=== PATIENT | female | born 1940 | race Caucasian/White ===

== ENCOUNTER 2018-07-11 12:56 | Emergency (ER) | payer MEDICARE ==
[~2018-07-11] VITALS: Ht 170.2 cm; Wt 48.0 kg
--- NOTE | 2018-07-11 13:09 | NUR ---
PATIENT AGREED TO BE EVALUATED IN [facility]ALLW[facility] 10.
[2018-07-11 13:55] LABS: BASOPHILS # (AUTO) 0.1 X10'3 (0-0.2); BASOPHILS % (AUTO) 1.1 % (0-1); EOSINOPHILS % (AUTO) 0.7 % (0-6); HEMATOCRIT 44.3 % (35.0-45.0); HEMOGLOBIN 13.7 g/dl (12.0-16.0); LYMPHOCYTES # (AUTO) 0.6 X10'3 (1.1-4.8); LYMPHOCYTES % (AUTO) 8.5 % (21-51); MEAN CORPUSCULAR HEMOGLOBIN 26.4 PG (27.0-31.0); MEAN CORPUSCULAR HGB CONC 30.9 % (33.0-36.5); MEAN CORPUSCULAR VOLUME 85.2 FL (78-98); MEAN PLATELET VOLUME 6.9 FL (7.4-10.4); MONOCYTES # (AUTO) 0.3 X10'3 (0-0.9); MONOCYTES % (AUTO) 5.2 % (2-12); NEUTROPHILS # (AUTO) 5.6 X10'3 (1.8-7.7); NEUTROPHILS % (AUTO) 84.5 % (42-75); PLATELET COUNT 322 X10'3 (140-440); RED BLOOD COUNT 5.19 X10'6 (4.20-5.60); WHITE BLOOD COUNT 6.6 X10'3 (4.5-11.0)
[2018-07-11 14:02] LABS: ALANINE AMINOTRANSFERASE 26 U/L (12-78); ALBUMIN 3.1 G/DL (3.4-5.0); ALBUMIN/GLOBULIN RATIO 0.7 (1.1-1.5); ALKALINE PHOSPHATASE 114 IU/L (46-116); ANION GAP 8 (8-16); ASPARTATE AMINO TRANSFERASE 14 U/L (10-37); BILIRUBIN,TOTAL 0.4 MG/DL (0.1-1.0); BLOOD UREA NITROGEN 9 MG/DL (7-18); BUN/CREATININE RATIO 12.7 (6.6-38.0); CALCIUM 9.6 MG/DL (8.5-10.1); CHLORIDE 97 MMOL/L (99-107); CREATININE 0.71 MG/DL (0.40-0.90); GLUCOSE 93 MG/DL (70-104); POTASSIUM 4.2 MMOL/L (3.5-5.1); SODIUM 133 MMOL/L (135-145); TOTAL CARBON DIOXIDE 28.1 MMOL/L (24-32); TOTAL PROTEIN 7.6 G/DL (6.4-8.2); eGFR 80 ML/MIN
[2018-07-11 14:21] LABS: CLARITY,URINE CLEAR (Clear); COLOR,URINE YELLOW (Yellow); GLUCOSE, URINE NEGATIVE (Neg); KETONES,URINE NEGATIVE (Neg); LEUKOCYTE ESTERASE ,URINE NEGATIVE (Neg); NITRITES, URINE NEGATIVE (Neg); OCCULT BLOOD,URINE NEGATIVE (Neg); PROTEIN,URINE NEGATIVE (Neg); UROBILINOGEN,URINE 0.2 E.U/dL (0.2-1.0)
[2018-07-11 14:22] LABS: UA COLLECTION TYPE CLN CATCH MIDSTREAM; URINE HCG NEGATIVE (NEG)
[2018-07-11 14:31] LABS: ANISOCYTOSIS 2+; HYPOCHROMASIA 1+; PLATELET ESTIMATE NORMAL; TOTAL CELLS COUNTED 100
[2018-07-11 14:32] LABS: POIKILOCYTOSIS FEW
[2018-07-11 14:49] LABS: AMYLASE 56 U/L (25-115); ETHANOL < 0.010 GM/DL (0.0-0.010); LIPASE 227 U/L (73-393); MAGNESIUM 2.1 MG/DL (1.5-2.4)
--- NOTE | 2018-07-11 15:24 | NUR ---
PATIENT TO CT.
[2018-07-11] MEDS ORDERED: iohexol 300mg/ml 100ml inj. ONE (15:29)
[2018-07-11 16:26] VITALS: BP 155/60
[2018-07-11] MEDS ORDERED: CefTRIAXone 2gm/D5W 50ml 50 ML IV ONE (16:35)
[2018-07-11] MEDS ORDERED: normal saline 1000ML IV soln IVB ONE (16:35)
[2018-07-11] MEDS ORDERED: DOXY100C2 PO (16:36)
[2018-07-11] MEDS ORDERED: LACT1CAP65 PO (16:44)
== END 2018-07-11 17:51 | disposition home or self-care (01) ==
LOC: ER 12:57
DX: J18.1 Lobar pneumonia, unspecified organism (principal); M19.90 Unspecified osteoarthritis, unspecified site; Z87.891 Personal history of nicotine dependence; Z90.89 Acquired absence of other organs; Z88.5 Allergy status to narcotic agent; Z88.8 Allergy status to other drugs, medicaments and biological substances; Z79.899 Other long term (current) drug therapy
CPT/HCPCS: 36415; 71045; 74177; 80053; 80320; 81003; 81025; 82150; 83690; 83735; 84443; 85025; 85610; 96365; 99284; J0696; J7030; Q9967

== ENCOUNTER 2018-07-22 19:29 | Emergency (ER) | payer MEDICARE ==
[~2018-07-22] VITALS: Ht 170.2 cm; Wt 45.0 kg
[~2018-07-22 19:29] MED LIST: DOXY100C2 PO; LACT1CAP65 PO
[2018-07-22 21:13] LABS: BASOPHILS # (AUTO) 0.1 X10'3 (0-0.2); BASOPHILS % (AUTO) 1.2 % (0-1); EOSINOPHILS # (AUTO) 0.1 X10'3 (0-0.9); HEMATOCRIT 44.1 % (35.0-45.0); HEMOGLOBIN 14.2 g/dl (12.0-16.0); LYMPHOCYTES # (AUTO) 0.7 X10'3 (1.1-4.8); LYMPHOCYTES % (AUTO) 10.4 % (21-51); MEAN CORPUSCULAR HEMOGLOBIN 27.2 PG (27.0-31.0); MEAN CORPUSCULAR HGB CONC 32.2 % (33.0-36.5); MEAN CORPUSCULAR VOLUME 84.4 FL (78-98); MEAN PLATELET VOLUME 7.9 FL (7.4-10.4); MONOCYTES # (AUTO) 0.3 X10'3 (0-0.9); MONOCYTES % (AUTO) 4.7 % (2-12); NEUTROPHILS # (AUTO) 5.4 X10'3 (1.8-7.7); NEUTROPHILS % (AUTO) 82.7 % (42-75); PLATELET COUNT 231 X10'3 (140-440); RED BLOOD COUNT 5.22 X10'6 (4.20-5.60); RED CELL DISTRIBUTION WIDTH 19.6 % (11.5-14.5); WHITE BLOOD COUNT 6.5 X10'3 (4.5-11.0)
[2018-07-22 21:23] LABS: ALANINE AMINOTRANSFERASE 21 U/L (12-78); ALBUMIN 3.3 G/DL (3.4-5.0); ALBUMIN/GLOBULIN RATIO 0.7 (1.1-1.5); ALKALINE PHOSPHATASE 108 IU/L (46-116); ANION GAP 10 (8-16); ASPARTATE AMINO TRANSFERASE 7 U/L (10-37); BILIRUBIN,TOTAL 0.5 MG/DL (0.1-1.0); BLOOD UREA NITROGEN 13 MG/DL (7-18); BUN/CREATININE RATIO 17.6 (6.6-38.0); CHLORIDE 97 MMOL/L (99-107); CREATININE 0.74 MG/DL (0.40-0.90); GLUCOSE 144 MG/DL (70-104); POTASSIUM 4.1 MMOL/L (3.5-5.1); PROTHROMBIN TIME 9.8 SECONDS (9.0-12.0); SODIUM 135 MMOL/L (135-145); TOTAL CARBON DIOXIDE 27.7 MMOL/L (24-32); TOTAL PROTEIN 7.8 G/DL (6.4-8.2); eGFR 76 ML/MIN
[2018-07-22 21:31] LABS: LIPASE 154 U/L (73-393); MAGNESIUM 1.8 MG/DL (1.5-2.4); TROPONIN I < 0.04 NG/ML (0.0-0.05)
[2018-07-22 22:44] VITALS: BP 186/68
== END 2018-07-22 22:45 | disposition home or self-care (01) ==
LOC: ER 19:30
DX: K80.50 Calculus of bile duct without cholangitis or cholecystitis without obstruction (principal); R10.11 Right upper quadrant pain; M19.90 Unspecified osteoarthritis, unspecified site; Z87.891 Personal history of nicotine dependence; Z91.041 Radiographic dye allergy status; Z79.899 Other long term (current) drug therapy; Z88.5 Allergy status to narcotic agent
CPT/HCPCS: 36415; 71045; 80053; 83690; 83735; 83880; 84145; 84484; 85025; 85610; 99284

== ENCOUNTER 2020-04-06 20:55 | Emergency (ER) | payer MEDICARE ==
[~2020-04-06] VITALS: Ht 175.3 cm; Wt 56.3 kg
[~2020-04-06 20:55] MED LIST changes: +ALBU18HF2 INH; -DOXY100C2 PO; -LACT1CAP65 PO; +LEFL10TA16 PO; +LEVO125T PO
[2020-04-06 20:57] VITALS: BP 172/75
== END 2020-04-06 22:40 | disposition home or self-care (01) ==
LOC: ER 20:57
DX: R21 Rash and other nonspecific skin eruption (principal); R23.4 Changes in skin texture; M19.90 Unspecified osteoarthritis, unspecified site; Z98.890 Other specified postprocedural states; Z88.5 Allergy status to narcotic agent; Z88.8 Allergy status to other drugs, medicaments and biological substances; Z79.899 Other long term (current) drug therapy
CPT/HCPCS: 99284

== ENCOUNTER 2020-08-04 11:29 | Emergency (ER) | payer MEDICARE ==
[~2020-08-04] VITALS: Ht 170.2 cm; Wt 44.0 kg
[~2020-08-04 11:29] MED LIST changes: -ALBU18HF2 INH; +ARA20T PO; +FURO20TA4 PO; +METO-395 PO; +PANT20TA18 PO; +RIVA20TA PO
[2020-08-04] MEDS ORDERED: OFLO5DRO5 RIGHT EAR (13:21)
[2020-08-04 13:32] VITALS: BP 158/78
== END 2020-08-04 13:35 | disposition home or self-care (01) ==
LOC: ER 11:30
DX: H60.92 Unspecified otitis externa, left ear (principal); M19.90 Unspecified osteoarthritis, unspecified site; Z98.890 Other specified postprocedural states; Z88.5 Allergy status to narcotic agent; Z88.8 Allergy status to other drugs, medicaments and biological substances; Z79.899 Other long term (current) drug therapy; Z79.2 Long term (current) use of antibiotics
CPT/HCPCS: 69210; 99284

== ENCOUNTER 2020-08-09 10:13 | Emergency (ER) | payer MEDICARE ==
[~2020-08-09] VITALS: Ht 170.2 cm; Wt 44.0 kg
[~2020-08-09 10:13] MED LIST changes: +OFLO5DRO5 RIGHT EAR
[2020-08-09 12:17] LABS: BASOPHILS # (AUTO) 0.1 X10'3 (0-0.2); BASOPHILS % (AUTO) 1.2 % (0-1); EOSINOPHILS # (AUTO) 0.1 X10'3 (0-0.9); EOSINOPHILS % (AUTO) 1.2 % (0-6); HEMATOCRIT 35.1 % (35.0-45.0); HEMOGLOBIN 10.8 g/dl (12.0-16.0); LYMPHOCYTES # (AUTO) 0.7 X10'3 (1.1-4.8); LYMPHOCYTES % (AUTO) 10.4 % (21-51); MEAN CORPUSCULAR HGB CONC 30.7 g/dL (33.0-36.5); MEAN CORPUSCULAR VOLUME 81.5 FL (78-98); MEAN PLATELET VOLUME 6.9 FL (7.4-10.4); MONOCYTES # (AUTO) 0.8 X10'3 (0-0.9); MONOCYTES % (AUTO) 11.8 % (2-12); NEUTROPHILS # (AUTO) 4.9 X10'3 (1.8-7.7); NEUTROPHILS % (AUTO) 75.4 % (42-75); PLATELET COUNT 181 X10'3 (140-440); RED CELL DISTRIBUTION WIDTH 26.8 % (11.5-14.5); WHITE BLOOD COUNT 6.5 X10'3 (4.5-11.0)
[2020-08-09 12:32] LABS: ALANINE AMINOTRANSFERASE 18 U/L (12-78); ALBUMIN 2.8 G/DL (3.4-5.0); ALBUMIN/GLOBULIN RATIO 0.7 (1.1-1.5); ALKALINE PHOSPHATASE 104 IU/L (46-116); ANION GAP 7 (8-16); ASPARTATE AMINO TRANSFERASE 15 U/L (10-37); BILIRUBIN,TOTAL 0.4 MG/DL (0.1-1.0); BLOOD UREA NITROGEN 22 MG/DL (7-18); BUN/CREATININE RATIO 26.2 (6.6-38.0); CALCIUM 9.4 MG/DL (8.5-10.1); CHLORIDE 106 MMOL/L (99-107); CREATININE 0.84 MG/DL (0.40-0.90); GLUCOSE 97 MG/DL (70-104); POTASSIUM 4.9 MMOL/L (3.5-5.1); SODIUM 140 MMOL/L (135-145); TOTAL CARBON DIOXIDE 26.9 MMOL/L (24-32); TOTAL PROTEIN 6.6 G/DL (6.4-8.2); eGFR 65 ML/MIN
[2020-08-09 12:35] LABS: CLARITY,URINE CLOUDY (Clear); COLOR,URINE YELLOW (Yellow); GLUCOSE, URINE NEGATIVE (Neg); KETONES,URINE NEGATIVE (Neg); LEUKOCYTE ESTERASE ,URINE SMALL (Neg); NITRITES, URINE POSITIVE (Neg); OCCULT BLOOD,URINE NEGATIVE (Neg); PH,URINE 7.5 (4.8-8.0); PROTEIN,URINE 100 mg/dl (Neg); UROBILINOGEN,URINE 0.2 E.U/dL (0.2-1.0)
[2020-08-09 12:46] LABS: UA COLLECTION TYPE STRAIGHT CATH
[2020-08-09 12:49] LABS: WBC CLUMPS,URINE FEW /HPF (NEGATIVE)
[2020-08-09 12:50] LABS: BACTERIA,URINE 4+ /HPF (Neg); CELLULAR CAST 0-4 /LPF (NEGATIVE); COARSE GRANULAR CAST 0-3 /LPF (NEGATIVE); HYALINE CASTS 0-3 /LPF (NEGATIVE); RENAL CELLS, URINE FEW /HPF
[2020-08-09 12:54] LABS: SQUAMOUS EPITHELIAL CELL,UR MANY /LPF (FEW)
[2020-08-09 12:56] LABS: RBC,URINE 0-2 /HPF (0-2)
[2020-08-09 12:58] LABS: WBC,URINE 20-30 /HPF (0-4)
[2020-08-09] MEDS ORDERED: NITR100C6 PO (13:48)
[2020-08-09 14:51] VITALS: BP 168/92
[2020-08-09 14:51] LABS: TOTAL CELLS COUNTED 200
[2020-08-09 14:52] LABS: ANISOCYTOSIS 3+; HYPOCHROMASIA 1+; PLATELET ESTIMATE NORMAL; REACTIVE LYMPHOCYTES % 0 % (0-0)
[2020-08-09 14:54] LABS: ELLIPTOCYTES 1+; SCHISTOCYTES FEW
[2020-08-09 14:55] LABS: TEAR DROP CELLS FEW
== END 2020-08-09 14:53 | disposition home or self-care (01) ==
LOC: ER 10:14
DX: R06.82 Tachypnea, not elsewhere classified (principal); F41.9 Anxiety disorder, unspecified; N39.0 Urinary tract infection, site not specified; M19.90 Unspecified osteoarthritis, unspecified site; Z98.890 Other specified postprocedural states; Z88.5 Allergy status to narcotic agent; Z88.8 Allergy status to other drugs, medicaments and biological substances; Z79.2 Long term (current) use of antibiotics; Z79.899 Other long term (current) drug therapy
CPT/HCPCS: 36415; 71045; 80053; 81001; 84484; 85007; 85025; 87077; 87088; 87186; 93005; 99285

== ENCOUNTER 2021-09-16 10:26 | Emergency (ER) | payer MEDICARE ==
[~2021-09-16] VITALS: Ht 165.1 cm; Wt 50.0 kg
[~2021-09-16 10:26] MED LIST changes: -ARA20T PO; +DOCU-21 PO; -LEFL10TA16 PO; +LEFL10TA20 PO; +NITR100C6 PO; +[UNRECOGNIZED DRUG - CODE] PO
[2021-09-16 11:16] LABS: BASOPHILS % (AUTO) 0.5 % (0-1); EOSINOPHILS % (AUTO) 0.5 % (0-6); HEMATOCRIT 38.1 % (35.0-45.0); HEMOGLOBIN 12.5 g/dl (12.0-16.0); LYMPHOCYTES # (AUTO) 0.5 X10'3 (1.1-4.8); LYMPHOCYTES % (AUTO) 6.2 % (21-51); MEAN CORPUSCULAR HGB CONC 32.7 g/dL (33.0-36.5); MEAN CORPUSCULAR VOLUME 94.8 FL (78-98); MEAN PLATELET VOLUME 7.9 FL (7.4-10.4); MONOCYTES # (AUTO) 0.9 X10'3 (0-0.9); MONOCYTES % (AUTO) 11.7 % (2-12); NEUTROPHILS # (AUTO) 6.5 X10'3 (1.8-7.7); NEUTROPHILS % (AUTO) 81.1 % (42-75); PLATELET COUNT 229 X10'3 (140-440); RED BLOOD COUNT 4.01 X10'6 (4.20-5.60); RED CELL DISTRIBUTION WIDTH 18.1 % (11.5-14.5)
[2021-09-16 11:35] LABS: ALANINE AMINOTRANSFERASE 13 U/L (12-78); ALBUMIN 3.1 G/DL (3.4-5.0); ALBUMIN/GLOBULIN RATIO 0.7 (1.1-1.5); ALKALINE PHOSPHATASE 83 IU/L (46-116); ANION GAP 13 (8-16); ASPARTATE AMINO TRANSFERASE 9 U/L (10-37); BILIRUBIN,TOTAL 0.8 MG/DL (0.1-1.0); BLOOD UREA NITROGEN 17 MG/DL (7-18); BUN/CREATININE RATIO 18.1 (6.6-38.0); CHLORIDE 101 MMOL/L (99-107); CREATININE 0.94 MG/DL (0.40-0.90); GLUCOSE 112 MG/DL (70-104); POTASSIUM 3.7 MMOL/L (3.5-5.1); SODIUM 142 MMOL/L (135-145); TOTAL CARBON DIOXIDE 28.5 MMOL/L (24-32); TOTAL PROTEIN 7.3 G/DL (6.4-8.2); eGFR 57 ML/MIN
[2021-09-16 11:44] LABS: MAGNESIUM 2.2 MG/DL (1.5-2.4); PHOSPHORUS 2.9 MG/DL (2.3-4.5)
[2021-09-16 12:50] LABS: CLARITY,URINE CLEAR (Clear); COLOR,URINE YELLOW (Yellow); GLUCOSE, URINE NEGATIVE (Neg); KETONES,URINE NEGATIVE (Neg); LEUKOCYTE ESTERASE ,URINE NEGATIVE (Neg); NITRITES, URINE NEGATIVE (Neg); OCCULT BLOOD,URINE NEGATIVE (Neg); PH,URINE 5.5 (4.8-8.0); PROTEIN,URINE NEGATIVE (Neg); UROBILINOGEN,URINE 0.2 E.U/dL (0.2-1.0)
[2021-09-16 12:53] LABS: UA COLLECTION TYPE STRAIGHT CATH
--- NOTE | 2021-09-16 13:04 | NUR ---
Pt resting comfortably in bed, at bedside.
[2021-09-16] MEDS ORDERED: AZIT250T27 PO (13:28)
[2021-09-16 14:28] VITALS: BP 176/67
== END 2021-09-16 14:31 | disposition home or self-care (01) ==
LOC: ER 10:26
DX: J18.9 Pneumonia, unspecified organism (principal); Z20.822 Contact with and (suspected) exposure to COVID-19; I11.0 Hypertensive heart disease with heart failure; I50.9 Heart failure, unspecified; F03.90 Unspecified dementia, unspecified severity, without behavioral disturbance, psychotic disturbance, mood disturbance, and anxiety; Z87.19 Personal history of other diseases of the digestive system; M19.90 Unspecified osteoarthritis, unspecified site; Z88.8 Allergy status to other drugs, medicaments and biological substances; Z79.2 Long term (current) use of antibiotics; Z79.899 Other long term (current) drug therapy
CPT/HCPCS: 36415; 71045; 80053; 81003; 83605; 83735; 83880; 84100; 84145; 84484; 85025; 87040; 87635; 93005; 99285; C9803

== ENCOUNTER 2021-11-04 07:26 | Inpatient (IN) | payer MEDICARE ==
[~2021-11-04] VITALS: Ht 162.6 cm; Wt 47.7 kg
[2021-11-04] MEDS ORDERED: LIDOcaine 2% 10ml TOPICAL JELLY (Urojet) TP ONE (07:45)
[2021-11-04] MEDS ORDERED: ipratropium/albuterol 3ml nebule NEB ONE (07:50)
[2021-11-04 07:53] LABS: ABG BASE EXCESS 1.5 mmol/L (-2.0-2.0); ABG HCO3 25.5 mmol/L (22.0-26.0); ABG OXYGEN SATURATION 93.3 % (94-97); ABG PCO2 (T) 38.3 mmHg (32.0-45.0); ABG PO2 (T) 66.7 mmHg (75.0-100.0); ALLEN'S TEST POSITIVE; FCOHb 0.6 % (0.0-3.9); FLOW 15 L/min; FO2Hb 92.7 % (94-97); TOTAL HEMOGLOBIN 13.7 G/dl (12.0-16.0)
--- NOTE | 2021-11-04 08:00 | NUR ---
Per RT, pt will be placed on BiPAP/C-PAP
[2021-11-04] MEDS ORDERED: azithromycin/NS 500mg/250ml 250 ML IV ONE (08:15)
[2021-11-04] MEDS ORDERED: cefTRIAXone 1g/NS 100ml IVPB 100 ML IV ONE (08:15)
[2021-11-04 08:26] LABS: BASOPHILS # (AUTO) 0.1 X10'3 (0-0.2); BASOPHILS % (AUTO) 1.1 % (0-1); EOSINOPHILS # (AUTO) 0.1 X10'3 (0-0.9); EOSINOPHILS % (AUTO) 0.8 % (0-6); HEMATOCRIT 41.7 % (35.0-45.0); HEMOGLOBIN 13.7 g/dl (12.0-16.0); LYMPHOCYTES # (AUTO) 0.5 X10'3 (1.1-4.8); LYMPHOCYTES % (AUTO) 4.7 % (21-51); MEAN CORPUSCULAR HEMOGLOBIN 30.7 PG (27.0-31.0); MEAN CORPUSCULAR HGB CONC 32.7 g/dL (33.0-36.5); MEAN CORPUSCULAR VOLUME 93.7 FL (78-98); MEAN PLATELET VOLUME 8.5 FL (7.4-10.4); MONOCYTES # (AUTO) 0.6 X10'3 (0-0.9); MONOCYTES % (AUTO) 6.1 % (2-12); NEUTROPHILS # (AUTO) 8.9 X10'3 (1.8-7.7); NEUTROPHILS % (AUTO) 87.3 % (42-75); PLATELET COUNT 268 X10'3 (140-440); RED BLOOD COUNT 4.45 X10'6 (4.20-5.60); RED CELL DISTRIBUTION WIDTH 17.8 % (11.5-14.5); WHITE BLOOD COUNT 10.2 X10'3 (4.5-11.0)
[2021-11-04 08:53] LABS: ALANINE AMINOTRANSFERASE 12 U/L (12-78); ALBUMIN 3.2 G/DL (3.4-5.0); ALBUMIN/GLOBULIN RATIO 0.7 (1.1-1.5); ALKALINE PHOSPHATASE 93 IU/L (46-116); ANION GAP 12 (8-16); ASPARTATE AMINO TRANSFERASE 11 U/L (10-37); BILIRUBIN,TOTAL 0.6 MG/DL (0.1-1.0); BLOOD UREA NITROGEN 11 MG/DL (7-18); BUN/CREATININE RATIO 11.5 (6.6-38.0); CALCIUM 9.6 MG/DL (8.5-10.1); CHLORIDE 99 MMOL/L (99-107); CREATININE 0.96 MG/DL (0.40-0.90); GLUCOSE 187 MG/DL (70-104); POTASSIUM 3.3 MMOL/L (3.5-5.1); SODIUM 135 MMOL/L (135-145); TOTAL CARBON DIOXIDE 24.2 MMOL/L (24-32); TOTAL PROTEIN 7.7 G/DL (6.4-8.2); eGFR 56 ML/MIN
[2021-11-04 09:34] LABS: CLARITY,URINE CLEAR (Clear); COLOR,URINE YELLOW (Yellow); GLUCOSE, URINE NEGATIVE (Neg); KETONES,URINE NEGATIVE (Neg); LEUKOCYTE ESTERASE ,URINE NEGATIVE (Neg); NITRITES, URINE NEGATIVE (Neg); OCCULT BLOOD,URINE TRACE-INTACT (Neg); PH,URINE 6.5 (4.8-8.0); PROTEIN,URINE 30 mg/dl (Neg); UROBILINOGEN,URINE 0.2 E.U/dL (0.2-1.0)
[2021-11-04 09:39] LABS: UA COLLECTION TYPE FOLEY CATH
[2021-11-04 09:40] LABS: BACTERIA,URINE NONE SEEN /HPF (Neg); MUCUS STRANDS FEW /LPF (Neg); RBC,URINE 0-2 /HPF (0-2); SQUAMOUS EPITHELIAL CELL,UR FEW /LPF (FEW); WBC,URINE NONE SEEN /HPF (0-4)
[2021-11-04] MEDS ORDERED: iohexol 350MG/ML 100ml bottle IV ONE (10:17)
--- NOTE | 2021-11-04 10:49 | NUR ---
RT called to help transport pt to CT. Pt removed from bipap and placed on non-rebreather mask at 15 lpm with spo2 of 97-99%. Per Dr. Hernadez, pt should be around spo2 of 92%. I did not assist with CT transport, however I just spoke with pt's RN, Sahra and pt was just returning from [place]. She will trial pt on a nasal cannula with spo2 goal of 92%. Will cont to monitor pt.
[2021-11-04] MEDS ORDERED: POTASSIUM BICARB 20meq eff tab 20 MEQ TABLET.EFF PO PRN ×2 (11:20)
[2021-11-04] MEDS ORDERED: potassium CL 10mEq/100ml bag 100 ML IV PRN (11:20)
[2021-11-04] MEDS ORDERED: ondansetron/PF 4mg/2ml inj IV PRN (11:20)
[2021-11-04] MEDS ORDERED: acetaminophen 325mg tablet PO PRN (11:20)
[2021-11-04] MEDS ORDERED: magnesium 2GM in 50ml NS 50 ML IV PRN (11:20)
[2021-11-04] MEDS ORDERED: magnesium Cl slow-release 64mg tablet PO PRN (11:20)
[2021-11-04] MEDS ORDERED: magnesium 4gm in 100ml NS 100 ML IV PRN (11:20)
[2021-11-04] MEDS: azithromycin/NS 500mg/250ml 250 ML IV SCH (11:35)
[2021-11-04] MEDS: cefTRIAXone 1g/NS 100ml IVPB 100 ML IV SCH (11:35)
[2021-11-04] MEDS: normal saline 1000ml 1,000 ML IV SCH (12:59)
[2021-11-04 13:02] LABS: MAGNESIUM 1.8 MG/DL (1.5-2.4); POTASSIUM 4.2 MMOL/L (3.5-5.1)
[2021-11-04] MEDS ORDERED: IBUP-2697 (16:35)
[2021-11-04] MEDS ORDERED: FURO40TA4 PO (16:35)
--- NOTE | 2021-11-04 17:28 | NUR ---
Received pt. repositioned pt. and cleaned soiled bed. VS taken. 84-91% on 6 L via salter. Graeme RT.
--- NOTE | 2021-11-04 17:32 | NUR ---
PAGER ID: [phone] MESSAGE: Jaclyn Dale [id number] Pt. BP 90/46. HR 106 Tko only fluids. Anne [id number]
[2021-11-04 17:54] VITALS: BP 100/58
[2021-11-04 18:00] VITALS: BP 91/51
--- NOTE | 2021-11-04 18:22 | NUR ---
Gave report to Ruthie TRIPATHI.
--- NOTE | 2021-11-04 18:38 | NUR ---
Patient in room U 3013. I have received report from BHUMI PARKER and had the opportunity to ask questions and assume patient care. Addendum: 11/04/21 at 1839 by Ruthie Pritchard RN Amended: Links added.
[2021-11-04] MEDS: K and/or MAG REPLACEMENT MC SCH (20:00)
[2021-11-04] MEDS: docusate sod 100mg capsule PO SCH (20:00)
--- NOTE | 2021-11-04 21:10 | NUR ---
Rt in the room with pt sats down 84% and pt changed form nc 5liters to salter o2 put to 10liters to get pt sats up and will titrate down as pt tolerates it.
[2021-11-04 22:00] VITALS: BP 118/78
--- NOTE | 2021-11-04 22:05 | NUR ---
sats up to 96% and 02 decreased to 8 liters. noted sats dropped to 94%.
--- NOTE | 2021-11-04 23:00 | NUR ---
o2 weaned down to 6 liters sats at 90% now and ended up increasing back up to 7 liters. to get back up to 92%.
[2021-11-05 02:00] VITALS: BP 110/60
--- NOTE | 2021-11-05 03:20 | NUR ---
inc of liquid stool skin care done and positioned to comfort.
--- NOTE | 2021-11-05 05:04 | NUR ---
pt desaturates quickly with repositioning and it takes time to get her sats back up. she is coughing non productively and cough now slightly stronger than earlier. sats on7l salter now between 93-94. when she drops it goes down to 77% and takes awhile to increase.
--- NOTE | 2021-11-05 06:35 | NUR ---
Problems reprioritized. Patient report given, questions answered & plan of care reviewed with BHUMI CARD. Addendum: 11/05/21 at 0635 by Ruthie Pritchard RN Amended: Links added.
[2021-11-05 06:47] LABS: BASOPHILS % (AUTO) 0.2 % (0-1); EOSINOPHILS % (AUTO) 0 % (0-6); HEMATOCRIT 41.5 % (35.0-45.0); HEMOGLOBIN 13.1 g/dl (12.0-16.0); LYMPHOCYTES # (AUTO) 0.6 X10'3 (1.1-4.8); LYMPHOCYTES % (AUTO) 4.8 % (21-51); MEAN CORPUSCULAR HEMOGLOBIN 29.9 PG (27.0-31.0); MEAN CORPUSCULAR HGB CONC 31.6 g/dL (33.0-36.5); MEAN CORPUSCULAR VOLUME 94.5 FL (78-98); MEAN PLATELET VOLUME 8.3 FL (7.4-10.4); MONOCYTES # (AUTO) 0.9 X10'3 (0-0.9); NEUTROPHILS # (AUTO) 10.2 X10'3 (1.8-7.7); PLATELET COUNT 228 X10'3 (140-440); RED BLOOD COUNT 4.39 X10'6 (4.20-5.60); RED CELL DISTRIBUTION WIDTH 18.7 % (11.5-14.5); WHITE BLOOD COUNT 11.7 X10'3 (4.5-11.0)
[2021-11-05 07:00] VITALS: BP 147/70
[2021-11-05] MEDS: docusate sod 100mg capsule PO SCH ×2 (07:04→20:00)
[2021-11-05 07:08] LABS: ALBUMIN 2.7 G/DL (3.4-5.0); ANION GAP 13 (8-16); BLOOD UREA NITROGEN 22 MG/DL (7-18); BUN/CREATININE RATIO 18.6 (6.6-38.0); CALCIUM 10.1 MG/DL (8.5-10.1); CHLORIDE 104 MMOL/L (99-107); CREATININE 1.18 MG/DL (0.40-0.90); GLUCOSE 131 MG/DL (70-104); MAGNESIUM 2.3 MG/DL (1.5-2.4); POTASSIUM 4.3 MMOL/L (3.5-5.1); SODIUM 140 MMOL/L (135-145); TOTAL CARBON DIOXIDE 23.2 MMOL/L (24-32); eGFR 44 ML/MIN
[2021-11-05] MEDS: K and/or MAG REPLACEMENT MC SCH ×2 (07:10→20:00)
[2021-11-05] MEDS: azithromycin/NS 500mg/250ml 250 ML IV SCH (07:45)
[2021-11-05] MEDS: cefTRIAXone 1g/NS 100ml IVPB 100 ML IV SCH (07:45)
--- NOTE | 2021-11-05 10:39 | NUR ---
Malnutrition consult: Pt admitted w/ acute respiratory failure and PNA w/ hx of dementia and nonverbal per EMR. Per MST pt reports 2-13lb wt loss. Wt and ht in EMR fluctuates over the years. Pt non verbal, at bedside who states he does not think pt has lost much wt recently, maybe a pound or two. Pt does appear w/ moderate wasting to facial, clavicular and deltoid regions, however the states that this has been her baseline appearance for the last few years. He states that she needs soft foods because she has not teeth, and is able to eat at home, though does not like protein drinks. No edema noted. At this time pt does not meet minimum criteria for malnutrition. Recommend BSS w/ CORPORATE LAWYER to determine most appropriate diet texture. D/w dietary to send soft to chew foods and chopped meats in the meantime. Recommend liberalizing to Regular diet. Addendum: 11/05/21 at [address] Amended: Links added.
[2021-11-05 11:00] VITALS: BP 126/65
[2021-11-05] MEDS: metoprolol succinate 25mg (24-HOUR) SR. Tablet PO SCH (13:22)
[2021-11-05] MEDS: levoTHYROXINE 125mcg tablet PO SCH (13:22)
[2021-11-05] MEDS: LEFLUNOMIDE 10 MG TABLET PO SCH (13:22)
--- NOTE | 2021-11-05 13:45 | NUR ---
Titrated the patient's oxygen amount. Started the patient at 4L stating 94%. Slowly weaned down to RA. After 7 minutes, the patient started to de-stat to 86%. Placed the patient on 2L of O2 since the patient started to eat lunch.
[2021-11-05 15:00] VITALS: BP 124/68
[2021-11-05 18:00] VITALS: BP 144/85
--- NOTE | 2021-11-05 18:23 | NUR ---
Problems reprioritized. Patient report given, questions answered & plan of care reviewed with Ruthie TRIPATHI.
--- NOTE | 2021-11-05 18:37 | NUR ---
Patient in room U 3013. I have received report from COMPA and had the opportunity to ask questions and assume patient care. Addendum: 11/05/21 at 1838 by Ruthie Pritchard RN Amended: Links added.
--- NOTE | 2021-11-05 20:40 | NUR ---
skin care, bhardwaj care done with lien change after cleaning inc of liquid stool. barrier cream mix with calzyme for skin protection to bottom. pt repositioned to comfort after this.
[2021-11-05 22:00] VITALS: BP 122/76
--- NOTE | 2021-11-06 01:00 | NUR ---
pt awoke took 02 off sats dropped to 86% and reapplied 02 raised it up to 5 liters to help bring it back up.
[2021-11-06 02:00] VITALS: BP 140/81
--- NOTE | 2021-11-06 02:10 | NUR ---
02 salter dropped back down to 2 liters. satsat 89-90% so 02 brought back up to 3 liters.
--- NOTE | 2021-11-06 03:00 | NUR ---
pt wide awake with 02 on and sats dropped back down to 87% encouraged coughing and deep breathing with her, pt coughed up some said she swallowed it. cough is weak course, sats did not go up after percussion done 02 raised back up to 6 liters.
--- NOTE | 2021-11-06 04:15 | NUR ---
pt weaned back down to 4l liters salter. at 93-94% with this but at times dips back to 91-92%.
[2021-11-06 06:00] VITALS: BP 152/64
--- NOTE | 2021-11-06 06:25 | NUR ---
Problems reprioritized. Patient report given, questions answered & plan of care reviewed with BHUMI VERDE. Addendum: 11/06/21 at 0626 by Ruthie Pritchard RN Amended: Links added.
--- NOTE | 2021-11-06 06:33 | NUR ---
Patient in room PCU 3013. I have received report from RODERICK TRIPATHI and had the opportunity to ask questions and assume patient care.
[2021-11-06 07:18] LABS: ALBUMIN 2.7 G/DL (3.4-5.0); ANION GAP 15 (8-16); BLOOD UREA NITROGEN 26 MG/DL (7-18); BUN/CREATININE RATIO 27.1 (6.6-38.0); CALCIUM 9.9 MG/DL (8.5-10.1); CHLORIDE 104 MMOL/L (99-107); CREATININE 0.96 MG/DL (0.40-0.90); GLUCOSE 90 MG/DL (70-104); MAGNESIUM 2.3 MG/DL (1.5-2.4); POTASSIUM 3.6 MMOL/L (3.5-5.1); SODIUM 140 MMOL/L (135-145); TOTAL CARBON DIOXIDE 21.3 MMOL/L (24-32); eGFR 56 ML/MIN
[2021-11-06] MEDS: cefTRIAXone 1g/NS 100ml IVPB 100 ML IV SCH (07:21)
[2021-11-06] MEDS: metoprolol succinate 25mg (24-HOUR) SR. Tablet PO SCH (07:21)
[2021-11-06] MEDS: rivaroxaban 20mg tablet PO SCH (07:21)
[2021-11-06] MEDS: LEFLUNOMIDE 10 MG TABLET PO SCH (07:21)
[2021-11-06] MEDS: pantoprazole 40mg Tablet.DR PO SCH (07:21)
[2021-11-06] MEDS: levoTHYROXINE 125mcg tablet PO SCH (07:21)
[2021-11-06] MEDS: docusate sod 100mg capsule PO SCH ×2 (07:22→19:58)
[2021-11-06 07:51] LABS: BASOPHILS % (AUTO) 0.4 % (0-1); EOSINOPHILS % (AUTO) 0.1 % (0-6); HEMATOCRIT 39.3 % (35.0-45.0); HEMOGLOBIN 12.7 g/dl (12.0-16.0); LYMPHOCYTES # (AUTO) 0.3 X10'3 (1.1-4.8); LYMPHOCYTES % (AUTO) 4.1 % (21-51); MEAN CORPUSCULAR HEMOGLOBIN 30.4 PG (27.0-31.0); MEAN CORPUSCULAR HGB CONC 32.3 g/dL (33.0-36.5); MEAN CORPUSCULAR VOLUME 93.9 FL (78-98); MONOCYTES # (AUTO) 0.4 X10'3 (0-0.9); MONOCYTES % (AUTO) 5.7 % (2-12); NEUTROPHILS % (AUTO) 89.7 % (42-75); PLATELET COUNT 252 X10'3 (140-440); RED BLOOD COUNT 4.18 X10'6 (4.20-5.60); RED CELL DISTRIBUTION WIDTH 18.4 % (11.5-14.5); WHITE BLOOD COUNT 7.8 X10'3 (4.5-11.0)
[2021-11-06] MEDS: K and/or MAG REPLACEMENT MC SCH ×2 (08:00→19:58)
[2021-11-06] MEDS: azithromycin/NS 500mg/250ml 250 ML IV SCH (08:33)
[2021-11-06 11:00] VITALS: BP 151/74
[2021-11-06] MEDS: normal saline 1000ml 1,000 ML IV SCH ×2 (11:20→22:40)
[2021-11-06 15:00] VITALS: BP 180/74
[2021-11-06 18:00] VITALS: BP 182/97
--- NOTE | 2021-11-06 18:17 | NUR ---
Patient in room U 3013. I have received report from BHUMI VERDE and had the opportunity to ask questions and assume patient care. Addendum: 11/06/21 at 1817 by Ruthie Pritchard RN Amended: Links added.
[2021-11-06 22:00] VITALS: BP 182/85
--- NOTE | 2021-11-06 22:47 | NUR ---
hs care done bhardwaj care repositioned in bed and iv new bag hung with new tubing. pt tolerated well.
[2021-11-07] VITALS (7 sets, daily range): BP systolic 131–190; BP diastolic 61–93
--- NOTE | 2021-11-07 02:30 | NUR ---
bp190/93 confirmed manual bp's of left arm 180/88 &right 170/80 pt said she is in pain hurts all over 02/07. paged dr Carr for orders and is on a 24 hour bp med.
[2021-11-07] MEDS ORDERED: morphine 2 MG/ML inj. syringe IV PRN (03:25)
--- NOTE | 2021-11-07 03:29 | NUR ---
recieved order of morphine after calling Md cell phone for pt's complaint of generalized pain. said she hurt all over.
--- NOTE | 2021-11-07 04:25 | NUR ---
bp was 190/93 due to all over generalized pain per pt statement bp down and now 162/64 pt remains in pain lower now at 7/10. medicated with morphine for this took time for the orders to get and pharmacy to ok it and computers slow.
[2021-11-07 05:42] LABS: BASOPHILS # (AUTO) 0.1 X10'3 (0-0.2); BASOPHILS % (AUTO) 0.8 % (0-1); EOSINOPHILS % (AUTO) 0.2 % (0-6); HEMATOCRIT 33.3 % (35.0-45.0); HEMOGLOBIN 10.9 g/dl (12.0-16.0); LYMPHOCYTES # (AUTO) 0.3 X10'3 (1.1-4.8); LYMPHOCYTES % (AUTO) 4.7 % (21-51); MEAN CORPUSCULAR HEMOGLOBIN 30.5 PG (27.0-31.0); MEAN CORPUSCULAR HGB CONC 32.7 g/dL (33.0-36.5); MEAN CORPUSCULAR VOLUME 93.3 FL (78-98); MEAN PLATELET VOLUME 7.8 FL (7.4-10.4); MONOCYTES # (AUTO) 0.4 X10'3 (0-0.9); MONOCYTES % (AUTO) 7.1 % (2-12); NEUTROPHILS # (AUTO) 5.2 X10'3 (1.8-7.7); NEUTROPHILS % (AUTO) 87.2 % (42-75); PLATELET COUNT 235 X10'3 (140-440); RED BLOOD COUNT 3.57 X10'6 (4.20-5.60); RED CELL DISTRIBUTION WIDTH 18.3 % (11.5-14.5)
[2021-11-07 05:58] LABS: ALBUMIN 2.5 G/DL (3.4-5.0); ANION GAP 6 (8-16); BLOOD UREA NITROGEN 15 MG/DL (7-18); BUN/CREATININE RATIO 21.1 (6.6-38.0); CALCIUM 9.3 MG/DL (8.5-10.1); CHLORIDE 107 MMOL/L (99-107); CREATININE 0.71 MG/DL (0.40-0.90); GLUCOSE 106 MG/DL (70-104); MAGNESIUM 1.9 MG/DL (1.5-2.4); POTASSIUM 3.2 MMOL/L (3.5-5.1); SODIUM 140 MMOL/L (135-145); TOTAL CARBON DIOXIDE 27.5 MMOL/L (24-32); eGFR 79 ML/MIN
--- NOTE | 2021-11-07 06:32 | NUR ---
Problems reprioritized. Patient report given, questions answered & plan of care reviewed with BHUMI VERDE. Addendum: 11/07/21 at 0632 by Ruthie Pritchard RN Amended: Links added.
[2021-11-07] MEDS: pantoprazole 40mg Tablet.DR PO SCH (07:28)
[2021-11-07] MEDS: docusate sod 100mg capsule PO SCH ×2 (07:29→20:00)
[2021-11-07] MEDS: cefTRIAXone 1g/NS 100ml IVPB 100 ML IV SCH (07:29)
[2021-11-07] MEDS: rivaroxaban 20mg tablet PO SCH (07:29)
[2021-11-07] MEDS: azithromycin 250mg tablet PO SCH (07:29)
[2021-11-07] MEDS: levoTHYROXINE 125mcg tablet PO SCH (07:29)
[2021-11-07] MEDS: metoprolol succinate 25mg (24-HOUR) SR. Tablet PO SCH (07:29)
[2021-11-07] MEDS: LEFLUNOMIDE 10 MG TABLET PO SCH (07:36)
[2021-11-07] MEDS: K and/or MAG REPLACEMENT MC SCH ×2 (08:11→20:00)
[2021-11-07] MEDS ORDERED: furosemide 40mg/4ml inj IV ONE (12:25)
--- NOTE | 2021-11-07 12:32 | NUR ---
PAGER ID: [phone] MESSAGE: RE Jaclyn Chito RM [id number] K this AM was 3.2, replaced x1, did you want to continue replacements? Meds are DC'd Thanks, Edgard
[2021-11-07] MEDS ORDERED: POTASSIUM BICARB 20meq eff tab 20 MEQ TABLET.EFF PO PRN (14:05)
[2021-11-07] MEDS ORDERED: POTASSIUM BICARBONATE/CIT AC 10 MEQ TABLET.EFF PO PRN (14:05)
[2021-11-07] MEDS: albuterol 2.5 MG/3 ML nebule NEB SCH ×2 (19:00→23:45)
[2021-11-08] VITALS (7 sets, daily range): BP systolic 135–184; BP diastolic 58–86
[2021-11-08] MEDS: albuterol 2.5 MG/3 ML nebule NEB SCH ×6 (04:02→23:15)
--- NOTE | 2021-11-08 06:21 | NUR ---
Problems reprioritized. Patient report given, questions answered & plan of care reviewed with BHUMI Harrison.
[2021-11-08 06:35] LABS: BASOPHILS # (AUTO) 0.1 X10'3 (0-0.2); BASOPHILS % (AUTO) 1.3 % (0-1); EOSINOPHILS % (AUTO) 0.3 % (0-6); HEMATOCRIT 38.2 % (35.0-45.0); HEMOGLOBIN 12.5 g/dl (12.0-16.0); LYMPHOCYTES # (AUTO) 0.4 X10'3 (1.1-4.8); MEAN CORPUSCULAR HEMOGLOBIN 30.5 PG (27.0-31.0); MEAN CORPUSCULAR HGB CONC 32.7 g/dL (33.0-36.5); MEAN CORPUSCULAR VOLUME 93.2 FL (78-98); MEAN PLATELET VOLUME 7.9 FL (7.4-10.4); MONOCYTES # (AUTO) 0.6 X10'3 (0-0.9); MONOCYTES % (AUTO) 12.4 % (2-12); NEUTROPHILS # (AUTO) 4.1 X10'3 (1.8-7.7); PLATELET COUNT 248 X10'3 (140-440); RED CELL DISTRIBUTION WIDTH 17.8 % (11.5-14.5); WHITE BLOOD COUNT 5.3 X10'3 (4.5-11.0)
--- NOTE | 2021-11-08 06:48 | NUR ---
Patient in room PCU 3013. I have received report from Jessica TRIPATHI and had the opportunity to ask questions and assume patient care.0 Patient in bed on 15L Venturi mask, unit awake tech obtaining vital signs, bed low rails up x3
[2021-11-08 06:53] LABS: ALBUMIN 2.8 G/DL (3.4-5.0); ANION GAP 11 (8-16); BLOOD UREA NITROGEN 16 MG/DL (7-18); BUN/CREATININE RATIO 18.8 (6.6-38.0); CALCIUM 9.8 MG/DL (8.5-10.1); CHLORIDE 108 MMOL/L (99-107); CREATININE 0.85 MG/DL (0.40-0.90); GLUCOSE 128 MG/DL (70-104); MAGNESIUM 1.9 MG/DL (1.5-2.4); POTASSIUM 3.6 MMOL/L (3.5-5.1); SODIUM 145 MMOL/L (135-145); TOTAL CARBON DIOXIDE 26.4 MMOL/L (24-32); eGFR 64 ML/MIN
[2021-11-08] MEDS: levoTHYROXINE 125mcg tablet PO SCH (07:42)
[2021-11-08] MEDS: metoprolol succinate 25mg (24-HOUR) SR. Tablet PO SCH (07:42)
[2021-11-08] MEDS: docusate sod 100mg capsule PO SCH ×2 (07:42→21:03)
[2021-11-08] MEDS: cefTRIAXone 1g/NS 100ml IVPB 100 ML IV SCH (07:42)
[2021-11-08] MEDS: pantoprazole 40mg Tablet.DR PO SCH (07:42)
[2021-11-08] MEDS: rivaroxaban 20mg tablet PO SCH (07:42)
[2021-11-08] MEDS: LEFLUNOMIDE 10 MG TABLET PO SCH (07:43)
[2021-11-08] MEDS: azithromycin 250mg tablet PO SCH (07:43)
[2021-11-08] MEDS: K and/or MAG REPLACEMENT MC SCH ×2 (08:00→20:00)
[2021-11-08] MEDS: normal saline 1000ml 1,000 ML IV SCH ×2 (11:20→21:12)
--- NOTE | 2021-11-08 13:36 | NUR ---
PRESSURE ULCER EDUCATION: DEFINITION: A pressure ulcer is an area of skin that breaks down when you stay in one position too long. The constant pressure against the skin reduces the blood flow to that area and the affected tissue dies. CAUSES: "Being bedridden or in a wheelchair "Fragile skin "Having a chronic condition, such as diabetes or vascular disease "Inability to move certain parts of your body without assistance "Older age "Incontinence of urine or stool SYMPTOMS: "A reddened area that DOES NOT turn white when pressed on - this can be the beginning of a pressure ulcer "A blister, deep sore or a crater - these can be advanced pressure ulcers FIRST AID: "Relieve the pressure on this area "Keep the area clean and dry "Call your primary doctor if you see any of the above symptoms "DO NOT massage the area "DO NOT use a donut shaped or ring shaped pillow- these actually interfere with the blood flow and cause complications PREVENTION: "Check for pressure ulcers everyday "Change position at least every two hours to relieve pressure "Use items that help relieve pressure- pillows, sheepskin, foam padding, and powders. "Keep skin clean and dry "Eat healthy well balanced meals "Exercise daily IF YOU SEE ANY OF THESE SYMPTOMS WHILE IN THE HOSPITAL - TELL YOUR NURSE IMMEDIATELY. IF YOU SEE ANY OF THESE SYMPTOMS WHILE AT HOME OR HAVE ANY QUESTIONS OR CONCERNS ABOUT PRESSURE ULCERS - CALL YOUR PRIMARY DOCTOR IMMEDIATELY. Addendum: 11/08/21 at 1337 by Bee Pride LVN Amended: Links added.
[2021-11-09 02:00] VITALS: BP 120/53
[2021-11-09] MEDS: albuterol 2.5 MG/3 ML nebule NEB SCH ×4 (02:50→15:28)
--- NOTE | 2021-11-09 03:00 | NUR ---
Pt keeps pulling off oxygen. Oxygen saturation above 91 % on Room air. diesel truck mechanic aware.
[2021-11-09 04:59] LABS: BASOPHILS # (AUTO) 0.1 X10'3 (0-0.2); BASOPHILS % (AUTO) 1.1 % (0-1); EOSINOPHILS # (AUTO) 0.1 X10'3 (0-0.9); EOSINOPHILS % (AUTO) 1.6 % (0-6); HEMATOCRIT 31.2 % (35.0-45.0); HEMOGLOBIN 10.1 g/dl (12.0-16.0); LYMPHOCYTES # (AUTO) 0.5 X10'3 (1.1-4.8); LYMPHOCYTES % (AUTO) 10.7 % (21-51); MEAN CORPUSCULAR HEMOGLOBIN 29.6 PG (27.0-31.0); MEAN CORPUSCULAR HGB CONC 32.3 g/dL (33.0-36.5); MEAN CORPUSCULAR VOLUME 91.6 FL (78-98); MEAN PLATELET VOLUME 7.5 FL (7.4-10.4); MONOCYTES # (AUTO) 0.5 X10'3 (0-0.9); MONOCYTES % (AUTO) 11.1 % (2-12); NEUTROPHILS # (AUTO) 3.7 X10'3 (1.8-7.7); NEUTROPHILS % (AUTO) 75.5 % (42-75); PLATELET COUNT 220 X10'3 (140-440); RED BLOOD COUNT 3.41 X10'6 (4.20-5.60); RED CELL DISTRIBUTION WIDTH 17.9 % (11.5-14.5); WHITE BLOOD COUNT 4.9 X10'3 (4.5-11.0)
[2021-11-09 05:18] LABS: ALBUMIN 2.3 G/DL (3.4-5.0); ANION GAP 5 (8-16); BLOOD UREA NITROGEN 12 MG/DL (7-18); BUN/CREATININE RATIO 16.4 (6.6-38.0); CALCIUM 8.9 MG/DL (8.5-10.1); CHLORIDE 106 MMOL/L (99-107); CREATININE 0.73 MG/DL (0.40-0.90); GLUCOSE 106 MG/DL (70-104); POTASSIUM 3.1 MMOL/L (3.5-5.1); SODIUM 140 MMOL/L (135-145); TOTAL CARBON DIOXIDE 29.1 MMOL/L (24-32); eGFR 77 ML/MIN
[2021-11-09 06:00] VITALS: BP 117/69
--- NOTE | 2021-11-09 06:41 | NUR ---
Problems reprioritized. Patient report given, questions answered & plan of care reviewed with BHUMI Barros.
--- NOTE | 2021-11-09 06:53 | NUR ---
Patient in room PCU 3013. I have received report from BHUMI Lopez and had the opportunity to ask questions and assume patient care.
--- NOTE | 2021-11-09 07:42 | NUR ---
Initial: Pt admitted w/ acute respiratory failure w/ hypoxemia and aspiration PNA per EMR. Currently on Puree diet per WASH BOX OPERATOR recs w/ [facility], eating avg 40% of meals partially meeting needs. Per previous discussion w/ pt's , she does not like protein shakes. Will provide smoothies TID for additional calories/protein. Recommend liberalizing to Regular diet given age and underweight status. LBM 5/8 receiving routine colace. Will continue to monitor. Recs 1. Continue Puree diet per WASH BOX OPERATOR recs, liberalize to Regular 2. Smoothies TID; pt does not like Ensure 3. Bowel care per rx 4. Weekly wts Addendum: 11/09/21 at [address] Amended: Links added.
[2021-11-09] MEDS: pantoprazole 40mg Tablet.DR PO SCH (07:45)
[2021-11-09] MEDS: azithromycin 250mg tablet PO SCH (07:45)
[2021-11-09] MEDS: cefTRIAXone 1g/NS 100ml IVPB 100 ML IV SCH (07:45)
[2021-11-09] MEDS: metoprolol succinate 25mg (24-HOUR) SR. Tablet PO SCH (07:46)
[2021-11-09] MEDS: rivaroxaban 20mg tablet PO SCH (07:46)
[2021-11-09] MEDS: docusate sod 100mg capsule PO SCH (07:46)
[2021-11-09] MEDS: levoTHYROXINE 125mcg tablet PO SCH (07:46)
[2021-11-09] MEDS: LEFLUNOMIDE 10 MG TABLET PO SCH (07:46)
[2021-11-09] MEDS: K and/or MAG REPLACEMENT MC SCH (08:00)
[2021-11-09] MEDS ORDERED: magnesium 2GM in 50ml NS 50 ML IV PRN (09:30)
[2021-11-09] MEDS ORDERED: magnesium hydroxide 30ml (MOM) UD suspension PO PRN (09:30)
[2021-11-09] MEDS ORDERED: POTASSIUM BICARB 20meq eff tab 20 MEQ TABLET.EFF PO PRN (09:30)
[2021-11-09] MEDS ORDERED: potassium CL 10mEq/100ml bag 100 ML IV PRN (09:30)
[2021-11-09] MEDS ORDERED: magnesium 4gm in 100ml NS 100 ML IV PRN (09:30)
[2021-11-09] MEDS ORDERED: magnesium Cl slow-release 64mg tablet PO PRN (09:30)
[2021-11-09] MEDS: POTASSIUM BICARB 20meq eff tab 20 MEQ TABLET.EFF PO PRN ×2 (10:46→15:20)
[2021-11-09 11:00] VITALS: BP 124/54
[2021-11-09 15:00] VITALS: BP 126/60
--- NOTE | 2021-11-09 15:34 | NUR ---
Report called to Kathy at [facility]
--- NOTE | 2021-11-09 16:05 | NUR ---
Pt discharged to [place] via [facility]. at bedside at transfer. No belongings to send with patient. IV DC'd, cannula intact.
== END 2021-11-09 16:05 | DRG 177 ==
LOC: ER 07:27 → ED HOLD 11:31 → PCU 3S 17:09
PROVIDERS: ADMIT Internal Medicine; ATTEND Internal Medicine
PROC: 5A09357 Assistance with Respiratory Ventilation, Less than 24 Consecutive Hours, Continuous Positive Airway Pressure (ICD-10-PCS; principal; 2021-11-04)
PROC: B32T1ZZ Computerized Tomography (CT Scan) of Left Pulmonary Artery using Low Osmolar Contrast (ICD-10-PCS; 2021-11-04)
PROC: B3201ZZ Computerized Tomography (CT Scan) of Thoracic Aorta using Low Osmolar Contrast (ICD-10-PCS; 2021-11-04)
PROC: B32S1ZZ Computerized Tomography (CT Scan) of Right Pulmonary Artery using Low Osmolar Contrast (ICD-10-PCS; 2021-11-04)
PROC: 5A0935A Assistance with Respiratory Ventilation, Less than 24 Consecutive Hours, High Flow/Velocity Cannula (ICD-10-PCS; 2021-11-08)
DX: J69.0 Pneumonitis due to inhalation of food and vomit (principal); J96.01 Acute respiratory failure with hypoxia; I50.9 Heart failure, unspecified; Z20.822 Contact with and (suspected) exposure to COVID-19; Z66 Do not resuscitate; I11.0 Hypertensive heart disease with heart failure; F03.90 Unspecified dementia, unspecified severity, without behavioral disturbance, psychotic disturbance, mood disturbance, and anxiety; E03.9 Hypothyroidism, unspecified; K21.9 Gastro-esophageal reflux disease without esophagitis; M19.90 Unspecified osteoarthritis, unspecified site; Z88.5 Allergy status to narcotic agent; Z88.8 Allergy status to other drugs, medicaments and biological substances; Z79.899 Other long term (current) drug therapy
CPT/HCPCS: 36415; 36600; 71045; 71275; 80048; 80053; 81001; 82803; 83605; 83735; 84132; 84145; 84484; 85018; 85025; 87040; 87081; 92508; 92616; 93005; 94640; 94660; 94668; 94760; 97162; 97530; 99285; G0378; J0456; J0696; J1940; J2270; J7030; Q9967

== ENCOUNTER 2021-11-17 11:47 | Emergency (ER) | payer MEDICARE ==
[~2021-11-17] VITALS: Ht 167.6 cm; Wt 59.1 kg
[~2021-11-17 11:47] MED LIST changes: -DOCU-21 PO; -NITR100C6 PO; -OFLO5DRO5 RIGHT EAR; -[UNRECOGNIZED DRUG - CODE] PO
[2021-11-17 13:40] LABS: BASOPHILS # (AUTO) 0.1 X10'3 (0-0.2); BASOPHILS % (AUTO) 1.3 % (0-1); EOSINOPHILS % (AUTO) 0.8 % (0-6); HEMATOCRIT 40.8 % (35.0-45.0); HEMOGLOBIN 13.1 g/dl (12.0-16.0); LYMPHOCYTES # (AUTO) 0.4 X10'3 (1.1-4.8); LYMPHOCYTES % (AUTO) 6.1 % (21-51); MEAN CORPUSCULAR HEMOGLOBIN 29.2 PG (27.0-31.0); MEAN CORPUSCULAR VOLUME 91.1 FL (78-98); MEAN PLATELET VOLUME 7.5 FL (7.4-10.4); MONOCYTES # (AUTO) 0.6 X10'3 (0-0.9); MONOCYTES % (AUTO) 10.1 % (2-12); NEUTROPHILS # (AUTO) 4.7 X10'3 (1.8-7.7); NEUTROPHILS % (AUTO) 81.7 % (42-75); PLATELET COUNT 351 X10'3 (140-440); RED BLOOD COUNT 4.47 X10'6 (4.20-5.60); RED CELL DISTRIBUTION WIDTH 18.2 % (11.5-14.5); WHITE BLOOD COUNT 5.8 X10'3 (4.5-11.0)
[2021-11-17 13:52] LABS: ALANINE AMINOTRANSFERASE 17 U/L (12-78); ALBUMIN 3.1 G/DL (3.4-5.0); ALBUMIN/GLOBULIN RATIO 0.7 (1.1-1.5); ALKALINE PHOSPHATASE 92 IU/L (46-116); ANION GAP 9 (8-16); ASPARTATE AMINO TRANSFERASE 11 U/L (10-37); BILIRUBIN,TOTAL 0.5 MG/DL (0.1-1.0); BLOOD UREA NITROGEN 27 MG/DL (7-18); BUN/CREATININE RATIO 25.7 (6.6-38.0); CALCIUM 9.8 MG/DL (8.5-10.1); CHLORIDE 100 MMOL/L (99-107); CREATININE 1.05 MG/DL (0.40-0.90); GLUCOSE 92 MG/DL (70-104); POTASSIUM 3.6 MMOL/L (3.5-5.1); SODIUM 138 MMOL/L (135-145); TOTAL CARBON DIOXIDE 29.3 MMOL/L (24-32); TOTAL PROTEIN 7.6 G/DL (6.4-8.2); eGFR 50 ML/MIN
[2021-11-17 14:27] LABS: D-DIMER 0.45 MG/L FEU (0-0.50)
--- NOTE | 2021-11-17 16:20 | NUR ---
Pt provided an additional warm blanket. No further needs at this time.
[2021-11-17 17:02] LABS: ABG HCO3 25.3 mmol/L (22.0-26.0); ABG OXYGEN SATURATION 89.9 % (94-97); ABG PCO2 (T) 35.1 mmHg (32.0-45.0); ABG PO2 (T) 56.9 mmHg (75.0-100.0); ALLEN'S TEST POSITIVE; FCOHb 0.8 % (0.0-3.9); FLOW 2 L/min; FMetHb 0.3 % (0.0-1.5); FO2Hb 88.9 % (94-97); TOTAL HEMOGLOBIN 12.4 G/dl (12.0-16.0)
--- NOTE | 2021-11-17 17:15 | NUR ---
Pt discharged. VSS. Pt alert, confused about where she lives, but ready to go. Will call for a return ride to [facility].
--- NOTE | 2021-11-17 17:35 | NUR ---
I HAVE CALLED [facility] WITH PROVIDED NUMBER AND THEY CLOSE AT 5. I LEFT MESSAGES FOR AND SON WITH NO LUCK, I ALSO CALLED HER PCP YA LISTED ON FACESHEET AND LEFT HIM A MESSAGE TO HAVE [facility] CONTACT US.
--- NOTE | 2021-11-17 17:36 | NUR ---
ALSO CALLED [facility] AND THEY DO NOT HAVE ANYOTHER NUMBER THEN THE ONE WE HAVE [phone]
--- NOTE | 2021-11-17 18:48 | NUR ---
Report given to [address] staff. [facility] will transport. ETA approx 1 hr.
[2021-11-17 21:04] VITALS: BP 121/63
== END 2021-11-17 21:08 | disposition home or self-care (01) ==
LOC: ER 11:49
DX: J18.1 Lobar pneumonia, unspecified organism (principal); Z20.822 Contact with and (suspected) exposure to COVID-19; R09.02 Hypoxemia; F03.90 Unspecified dementia, unspecified severity, without behavioral disturbance, psychotic disturbance, mood disturbance, and anxiety; M19.90 Unspecified osteoarthritis, unspecified site; Z87.19 Personal history of other diseases of the digestive system; Z88.8 Allergy status to other drugs, medicaments and biological substances; Z79.899 Other long term (current) drug therapy
CPT/HCPCS: 36415; 36600; 71045; 80053; 82803; 83605; 83880; 84484; 85018; 85025; 85379; 87040; 87635; 93005; 99285; C9803

== ENCOUNTER 2021-11-19 10:40 | Emergency (ER) | payer MEDICARE ==
[~2021-11-19] VITALS: Ht 157.5 cm; Wt 43.2 kg
[2021-11-19 12:20] LABS: HEMATOCRIT 40.7 % (35.0-45.0); MEAN CORPUSCULAR HEMOGLOBIN 29.3 PG (27.0-31.0); MEAN CORPUSCULAR VOLUME 91.7 FL (78-98); MEAN PLATELET VOLUME 8.5 FL (7.4-10.4); PLATELET COUNT 324 X10'3 (140-440); RED BLOOD COUNT 4.44 X10'6 (4.20-5.60); RED CELL DISTRIBUTION WIDTH 18.1 % (11.5-14.5); WHITE BLOOD COUNT 5.4 X10'3 (4.5-11.0)
[2021-11-19 12:24] LABS: ALANINE AMINOTRANSFERASE 13 U/L (12-78); ALBUMIN 3.2 G/DL (3.4-5.0); ALBUMIN/GLOBULIN RATIO 0.7 (1.1-1.5); ALKALINE PHOSPHATASE 93 IU/L (46-116); ANION GAP 6 (8-16); ASPARTATE AMINO TRANSFERASE 10 U/L (10-37); BILIRUBIN,TOTAL 0.5 MG/DL (0.1-1.0); BLOOD UREA NITROGEN 26 MG/DL (7-18); BUN/CREATININE RATIO 22.2 (6.6-38.0); CALCIUM 10.1 MG/DL (8.5-10.1); CHLORIDE 100 MMOL/L (99-107); CREATININE 1.17 MG/DL (0.40-0.90); GLUCOSE 138 MG/DL (70-104); SODIUM 135 MMOL/L (135-145); TOTAL CARBON DIOXIDE 28.9 MMOL/L (24-32); TOTAL PROTEIN 7.8 G/DL (6.4-8.2); eGFR 44 ML/MIN
[2021-11-19 12:27] LABS: POTASSIUM 2.8 MMOL/L (3.5-5.1)
[2021-11-19 12:39] LABS: TOTAL CELLS COUNTED 100
[2021-11-19 12:41] LABS: ANISOCYTOSIS 2+; ELLIPTOCYTES 1+; PLATELET ESTIMATE NORMAL; TEAR DROP CELLS 1+
[2021-11-19] MEDS ORDERED: POTASSIUM BICARB 20meq eff tab 20 MEQ TABLET.EFF PO STA (12:42)
[2021-11-19 14:09] VITALS: BP 104/54
--- NOTE | 2021-11-19 14:09 | NUR ---
telephone report to Earline at [facility]. all questions answered. informed that [facility] will be coming for pt soon.
[2021-11-19] MEDS ORDERED: ondansetron/PF 4mg/2ml inj IV ONE (14:15)
--- NOTE | 2021-11-19 14:56 | NUR ---
[facility] at bedside to order picker pt. pt max assist to wheelchair.
== END 2021-11-19 14:50 | disposition home or self-care (01) ==
LOC: ER 10:40
DX: E87.6 Hypokalemia (principal); F03.90 Unspecified dementia, unspecified severity, without behavioral disturbance, psychotic disturbance, mood disturbance, and anxiety; R09.02 Hypoxemia; I25.10 Atherosclerotic heart disease of native coronary artery without angina pectoris; I11.0 Hypertensive heart disease with heart failure; I50.9 Heart failure, unspecified; I25.2 Old myocardial infarction; J44.9 Chronic obstructive pulmonary disease, unspecified; K21.9 Gastro-esophageal reflux disease without esophagitis; E11.9 Type 2 diabetes mellitus without complications; M19.90 Unspecified osteoarthritis, unspecified site; F41.9 Anxiety disorder, unspecified; Z87.01 Personal history of pneumonia (recurrent); Z98.890 Other specified postprocedural states; Z88.8 Allergy status to other drugs, medicaments and biological substances; Z88.5 Allergy status to narcotic agent; Z79.899 Other long term (current) drug therapy
CPT/HCPCS: 36415; 71045; 80053; 83880; 84484; 85007; 85025; 93005; 96374; 99285; J2405